=== PATIENT | female | born 1965 | race Caucasian/White ===

== ENCOUNTER 2022-05-13 13:22 | Emergency (ER) | payer OTHER ==
[2022-05-13 15:05] LABS: BILIRUBIN NEGATIVE (NEGATIVE); BLOOD 1+ Ery/uL (NEGATIVE); CLARITY CLEAR (CLEAR); COLOR YELLOW (YELLOW); GLUCOSE (U) NORMAL (NORMAL); LEUKOCYTES NEGATIVE Leu/uL (NEGATIVE); NITRITE NEGATIVE (NEGATIVE); PROTEIN NEGATIVE (NEGATIVE); SPECIFIC GRAVITY >=1.030 (1.001-1.030); UROBILINOGEN 0.2 mg/dL (0.2-1.0); pH 5.5 (5.0-9.0)
[2022-05-13 15:14] LABS: BASOPHIL 1.1 % (0-2); EOSINOPHIL 6.6 % (0-5); HCT 42.8 % (37.0-47.0); HGB 14.1 g/dl (12.5-16.0); MCH 27.6 pg (25.0-31.0); MCHC 32.9 g/dL (32.0-36.0); MCV 83.9 fL (78.0-100.0); MONOCYTE 9.3 % (0-12); MPV 10.4 fL (6.0-9.5); NEUTROPHIL 46.9 % (41-80); NRBC 0; PLT 240 K/uL (150-400); RDW 14.4 % (11.5-14.0); WBC 7.4 K/uL (4.0-10.5)
[2022-05-13 15:37] LABS: ALBUMIN 4.1 g/dL (3.4-5.0); BILIRUBIN - TOTAL 0.4 mg/dL (0.2-1.0); BUN/CREAT RATIO (CALC) 12.8 RATIO; CREATININE 1.09 mg/dL (0.51-0.95); GLOBULIN (CALCULATION) 3.9 g/dL; POTASSIUM 4.1 mmol/L (3.5-5.1)
[2022-05-13] MEDS ORDERED: NAPROXEN500 MG PO (16:06)
[2022-05-13] MEDS ORDERED: NORCO 5-325 TA1 EACH PO (16:06)
== END 2022-05-13 16:18 | disposition home or self-care (01) ==
LOC: FER 13:22
PROVIDERS: Internal Medicine
DX: R10.32 Left lower quadrant pain (principal); Z88.8 Allergy status to other drugs, medicaments and biological substances
CPT/HCPCS: 36415; 80053; 81003; 83690; 84145; 85025